=== PATIENT | female | born 1980 | race Caucasian/White ===

== ENCOUNTER 2021-02-14 23:23 | Emergency (ER) | payer OTHER, SELFPAY ==
[2021-02-14 23:34] VITALS: BP 137/88; PULSE 100; RESP 18; TEMP 36.3; O2SAT 100
--- NOTE | 2021-02-15 01:04 | ED.GENADULT ---
HPI - General Adult General Chief complaint: Extremity Injury, Lower Stated complaint: swelling in legs Time Seen by Provider: 02/15/21 00:45 Source: patient History of Present Illness HPI narrative: Patient is a 40 y/o female complaining of moderate bilateral leg swelling for last 2 weeks. She states that her swelling gets worse with sleep. She has no chest pain, SOB or leg pain. Related Data Allergies Allergy/AdvReac Type Severity Reaction Status Date / Time Penicillins Allergy Mild Unverified 12/23/08 12:51 Review of Systems Constitutional: Constitutional: Denies chills, Denies fever(s), Denies headache(s) and Denies weakness Eyes: Eyes: Denies blurry vision ENT: Denies headache(s) and Denies neck pain Cardiovascular: Cardiovascular: Denies chest pain, Reports leg edema and Denies dyspnea Respiratory: Respiratory: Denies cough and Denies dyspnea Gastrointestinal: Gastrointestinal: Denies abdominal pain, Denies diarrhea, Denies nausea and Denies vomiting Genitourinary: Genitourinary: Denies hematuria and Denies dysuria Musculoskeletal: Musculoskeletal: Denies back pain and Denies neck pain Neurologic: Denies headache(s) and Denies weakness [facility] Social History Social History Gender identity (if verbalized by the patient): Female Exam Const: General: no acute distress and well developed Orientation/consciousness: oriented to person, oriented to place, oriented to time and patient oriented x3 HENMT: Head: normocephalic Ears: external ears normal General nose exam: Normal external nose present Eyes: General: appearance normal, both eyes and all related structures Conjunctivae: conjunctivae normal Neck: Neck: normal visual inspection and full ROM Chest: Chest palpation & inspection: normal inspection of the chest and no tenderness Resp: Effort & Inspection: normal respiratory effort Auscultation: clear to auscultation bilaterally Cardio: Rate: regular rate Rhythm: regular rhythm GI: GI Palp: No abdominal tenderness and Yes Soft to palpation Skin: General skin exam: normal color and turgor normal Neuro: General: oriented to person, oriented to place, oriented to time and patient oriented x3 Cognition (Neuro): normal cognition Extrem: General: normal to inspection, full ROM and edema bilateral Psych: Appearance: grossly normal Mental Status: mental status grossly normal Affect: normal affect Course Reevaluation(s) Reevaluation #1: Instructed patient to return in AM for venous doppler. Date: 02/15/21 Time: 02:00 Vital Signs Vital signs: Vital Signs Temperature 36.3 C L 02/14/21 23:34 Pulse Rate 100 02/14/21 23:34 Respiratory Rate 18 02/14/21 23:34 Blood Pressure 137/88 02/14/21 23:34 Pulse Oximetry 100 02/14/21 23:34 Temperature 36.3 C L 02/14/21 23:34 Pulse Rate 91 02/15/21 02:38 Respiratory Rate 16 02/15/21 02:38 Blood Pressure 128/73 02/15/21 02:38 Pulse Oximetry 100 02/15/21 02:38 Medical Decision Making Vital Signs Vital Signs: Vital Signs Temperature 36.3 C L 02/14/21 23:34 Pulse Rate 100 02/14/21 23:34 Respiratory Rate 18 02/14/21 23:34 Blood Pressure 137/88 02/14/21 23:34 Pulse Oximetry 100 02/14/21 23:34 Temperature 36.3 C L 02/14/21 23:34 Pulse Rate 91 02/15/21 02:38 Respiratory Rate 16 02/15/21 02:38 Blood Pressure 128/73 02/15/21 02:38 Pulse Oximetry 100 02/15/21 02:38 Lab Data Result diagrams: 02/15/21 01:07 02/15/21 01:07 Labs: Lab Results 02/15/21 02/15/21 02/15/21 Range/Units 01:04 01:04 01:07 WBC (4.5-10.0) K/mm3 RBC (4.2-5.4) M/mm3 Hgb (12.0-15.0) g/dL Hct (37.0-47.0) % MCV (80-100) fl MCH (26-34) pg MCHC (32-36) g/dl RDW (11.5-14.5) % Plt Count (150-375) k/mm3 MPV (7.4-10.4) fl Immature Gran % (Auto) (0-0.5) % Neut % (Auto) (45.5-73.
[2021-02-15 01:14] LABS: Basophils Absolute Auto 0.1 K/mm3 (0.0-0.1); Basophils Percent Auto 0.8 % (0.2-1.2); Eosinophils Absolute Auto 0.2 K/mm3 (0-0.3); Eosinophils Percent Auto 2.8 % (0-4.4); Hematocrit 43.3 % (37.0-47.0); Hemoglobin 13.5 g/dL (12.0-15.0); Immature Granulocyte Absolute 0.03 K/mm3 (0.00-0.031); Immature Granulocyte Percent A 0.4 % (0-0.5); Lymphocytes Percent Auto 25.3 % (18.3-44.2); Mean Corpuscular HGB Conc 31.2 g/dl (32-36); Mean Corpuscular Hemoglobin 25.6 pg (26-34); Monocytes Absolute Auto 0.6 K/mm3 (0.1-0.6); Monocytes Percent Auto 7.1 % (2.6-8.5); Neutrophils Absolute Auto 5.3 K/mm3 (1.3-6.7); Neutrophils Percent Auto 63.6 % (45.5-73.1); Platelet Count Result 270 k/mm3 (150-375); Red Blood Count 5.28 M/mm3 (4.2-5.4); Red Cell Distribution Width 17.2 % (11.5-14.5); White Blood Count 8.3 K/mm3 (4.5-10.0)
[2021-02-15 01:25] LABS: Alanine Aminotransferase 17 U/L (4-35); Albumin Level 4.1 g/dL (3.5-5.1); Alkaline Phosphatase 57 U/L (38-126); Anion Gap 7 mmol/L (8-16); Aspartate Amino Transferase 25 U/L (14-36); Bilirubin,Total 0.2 mg/dL (0.2-1.3); Blood Urea Nitrogen 15 mg/dL (7-17); Calcium 9.2 mg/dL (8.4-10.2); Carbon Dioxide 27 mmol/L (22-30); Chloride 107 mmol/L (98-107); Estimated CRCL calculation 88 ml/min; Estimated Glomerular Filt Rate > 60; Glucose 92 mg/dL (65-105); Potassium 4.3 mmol/L (3.4-5.0); Sodium 141 mmol/L (137-145)
[2021-02-15 01:27] LABS: D Dimer 0.62 ug/mL (<0.48)
[2021-02-15 01:34] LABS: NT Pro B Type Natriuretic Pept 36 pg/mL (5-100)
[2021-02-15 01:44] LABS: Add Urine Microscopic? YES; Appearance Urine Clear (Clear); Bacteria Urine Trace /hpf; Bilirubin Urine Negative (Negative); Blood Urine 3+ (Negative); Color Urine Yellow (Yellow); Glucose Urine UA Negative (Negative); Ketones Urine Negative (Negative); Leukocyte Esterase Ur Negative LEU/UL (Negative); Mucus Urine Few /lpf; Nitrate Urine Negative (Negative); Protein Urine Negative (Negative); Specific Grav Ur 1.026 (1.001-1.035); Squamous Epithelial Cell Urine Few /hpf (Few); Urobilinogen Urine Negative mg/dL (<2.0); WBC Urine 0-3 /hpf
[2021-02-15 02:05] LABS: Pregnancy On Board Control Positive; Urine Pregnancy Test Negative
[2021-02-15 02:38] VITALS: BP 128/73; PULSE 91; RESP 16; O2SAT 100
== END 2021-02-15 02:41 | disposition home or self-care (01) ==
PROVIDERS: Emergency Provider Emergency Medicine
DX: M79.89 Other specified soft tissue disorders (principal)
CPT/HCPCS: 36415; 80053; 81001; 81025; 83880; 84443; 85025; 85380; 99283

== ENCOUNTER 2021-02-16 10:05 | Emergency (ER) | payer OTHER, SELFPAY ==
--- NOTE | ~2021-02-16 | US_ITS ---
EXAMINATION:US venous doppler LE BI INDICATION:Bilateral leg swelling TECHNIQUE: Multiple grayscale, color flow and Doppler images of the right and left lower extremity de ep venous systems were obtained and reviewed. COMPARISON:No prior studies for comparison. FINDINGS: The common femoral, superficial femoral and popliteal veins demonstrate normal respiratory variation, augmentation and compressibility. Color flow is also seen within the posterior tibial, pe roneal, greater saphenous and profunda veins. IMPRESSION: 1: No lower extremity deep venous thrombosis. Reviewed, dictated and finalized at location B.
[2021-02-16 11:09] VITALS: BP 148/94; PULSE 110; RESP 14; TEMP 37.3; O2SAT 100
--- NOTE | 2021-02-16 11:43 | ED.LOWEXIN ---
HPI - Extremity Injury (Lower) General Chief Complaint: Extremity Injury, Lower Stated Complaint: DVT r/o- bilat legs Time Seen by Provider: 02/16/21 11:06 Source: patient Mode of arrival: ambulatory Limitations: no limitations History of Present Illness HPI Narrative: This is a 40-year-old female that presents the emergency department for bilateral lower extremity edema x1 week. Was seen in the ER for this 2 days ago. Was supposed to get an outpatient Doppler yesterday, but insurance was not covering this so she presented to the ED today for ultrasound. Reports swelling in her legs has actually improved a little bit today. Denies fever, chest pain, or shortness of breath. Related Data Home Medications Medication Instructions Recorded Confirmed No Home Medications 02/16/21 02/16/21 Allergies Allergy/AdvReac Type Severity Reaction Status Date / Time Penicillins Allergy Mild Swelling Unverified 02/16/21 11:17 of Lip/Tongue/Throat Review of Systems Review of Systems: Narrative: CONSTITUTIONAL: Denies fever CARDIOVASCULAR: Reports edema. Denies chest pain RESPIRATORY: Denies dyspnea. SKIN: Denies rash All systems reviewed & are unremarkable except as noted in HPI and below PMFSH Past Medical History Medical History (Updated 02/16/21 @ 13:15 by Clarice Martinez PA-C) No active medical problems Social History Social History (Updated 02/16/21 @ 11:45 by Clarice Martinez PA-C) Smoking status: Current every day smoker Gender identity (if verbalized by the patient): Female Exam Narrative: Exam Narrative: GENERAL: Well-appearing, well-nourished, and in no acute distress. HEAD: Normocephalic, atraumatic. EYES: EOMI. CHEST: Clear to auscultation. No respiratory distress. No wheezes rales or rhonchi HEART: Regular rate and rhythm. No murmur heard. Normal peripheral pulses. EXTREMITIES: Normal range of motion. No erythema. Mild non-pitting edema to the bilateral lower extremities. Normal DP pulses SKIN: Warm, dry, no rash. NEURO: No focal deficits. Alert and oriented x3. PSYCH: Normal mood and affect Course Vital Signs Vital signs: Vital Signs Temperature 99.2 F 02/16/21 11:09 Pulse Rate 110 H 02/16/21 11:09 Respiratory Rate 14 02/16/21 11:09 Blood Pressure 148/94 H 02/16/21 11:09 Pulse Oximetry 100 02/16/21 11:09 Temperature 99.2 F 02/16/21 11:09 Pulse Rate 110 H 02/16/21 11:09 Respiratory Rate 14 02/16/21 11:09 Blood Pressure 148/94 H 02/16/21 11:09 Pulse Oximetry 100 02/16/21 11:09 MDM - Extremity Injury (Lower) MDM Narrative Medical decision making narrative: Patient presents to the emergency department for bilateral lower extremity edema noted over the last week. Was seen in the ED for this 2 days ago and was supposed to get an outpatient venous Doppler. Reports she was unable to obtain this, so came to the ED today. She is afebrile and nontoxic-appearing. Vitals are stable. Bilateral lower extremity venous Dopplers without evidence of DVT. Patient was updated on case findings. She is stable and felt appropriate for further outpatient evaluation. Will be given primary care doctor for follow-up. She was given warnings to return to the ER Imaging Data Radiologist's impression: ITS Impressions Venous Doppler Study 02/16/21 12:04 IMPRESSION: 1: No lower extremity deep venous thrombosis. Critical Care Time Critical Care Time Critical Care Time: No Discharge Plan Discharge Clinical Impression: Bilateral leg edema Patient Disposition: Home, Self-Care Condition: Stable Instructions: Leg Edema (ED) Additional Instructions: Return to the emergency department if you experience fever, chest pain, shortness of breath, redness and swelling of your legs, or any other symptoms that are concerning to you Wear compression stockings. Elevate your legs while seated Follow-up with primary care doctor Martha
[2021-02-16 13:50] VITALS: BP 146/106; PULSE 106; RESP 20; TEMP 36.8; O2SAT 99
== END 2021-02-16 13:50 | disposition home or self-care (01) ==
PROVIDERS: Emergency Provider Emergency Medicine
DX: R60.0 Localized edema (principal); F17.200 Nicotine dependence, unspecified, uncomplicated
CPT/HCPCS: 93970; 99284